=== PATIENT | female | born 1960 | race Caucasian/White ===

== ENCOUNTER 2017-01-19 11:56 | Emergency (ER) | payer BC ==
[2017-01-19] MEDS ORDERED: Ketorolac INJ* 60 MG/2 ML VIAL IM ONE (14:11)
[2017-01-19 14:22] VITALS: BP 136/82
--- NOTE | 2017-01-19 15:37 | RAD ---
INDICATION: Back pain after twisting injury. Dysuria. Microscopic hematuria COMPARISON: None TECHNIQUE: Noncontrast axial source images were acquired from the level hemidiaphragms to the symphysis pubis as part of CT imaging for renal stone. Lung bases: The lung bases are clear. Liver: The liver is mildly enlarged with innumerable cysts in both hepatic lobes many cysts are 1 cm and smaller. The largest cysts measure up to 2.6 cm. There is no ductal dilatation. Gallbladder: There are no calcified gallstones. There is no evidence of wall thickening or pericholecystic fluid.. Spleen: The spleen is normal in size. The noncontrast CT appearance is normal. Pancreas: Noncontrast imaging shows no pancreatic mass or ductal dilitation. Adrenal glands: No masses are identified. Kidneys/Bladder: There is no evidence of nephrolithiasis or CT evidence of hydronephrosis. Noncontrast imaging shows no evidence of a renal mass. The bladder is unremarkable.. Adenopathy: There is no evidence of intraperitoneal or retroperitoneal adenopathy. Evaluation is limited without oral contrast. Fluid collections: There are no free or localized fluid collections. Vessels: The aorta and iliac vessels are normal in caliber. There are no significant atherosclerotic changes. The IVC appears normal Pelvic organs: There is a small, calcified uterine fibroid. There is no adnexal mass. GI tract: Evaluation of the bowel is limited without oral contrast. The stomach, small bowel, and lower GI tract appear grossly normal. There are no obstructive findings. The appendix is visualized and appears normal. Soft tissues: There is a small fat-containing left inguinal hernia. Osseous structures: There are no acute osseous findings. IMPRESSION: NO CT EVIDENCE OF UROLITHIASIS. POLYCYSTIC LIVER DISEASE.
--- NOTE | 2017-02-19 08:42 | UC ---
Lissett Perez SooYoung, scribed for TundeKaren DO Holden on 01/19/17 at 1356 . Back Pain HPI - HPI Summary HPI Summary: A 56 y/o F presents to [facility] [place] with c/o diffuse mid to lower back pain onset this AM [employer]. Pt was sweeping up her home, and as she bent down, she twisted to reach something and felt her back "wrench" as she attempted to stand back up. She rates the pain as 7/10 when she's moving. Pt states feeling OK otherwise. Denies : fever, chills, SOB, abd pain, rash, urinary sx. Aggravating factors: movement. Took two 200mg Ibuprofen at approx 1100. Pt is scheduled for a 4-5 hour car trip today. - History of Current Complaint Chief Complaint: UCBackPain Stated Complaint: BACK INJURY Time Seen by Provider: 01/19/17 13:48 Hx Obtained From: Patient Onset/Duration: Sudden Onset, Lasting Hours, Still Present Timing: Constant Severity Initially: Moderate Severity Currently: Moderate Pain Intensity: 7 Pain Scale Used: 0-10 Numeric Back Pain: Is Diffuse - mid and lower back Aggravating Factor(s): Movement Alleviating Factor(s): Rest, Position - sitting up Associated Signs And Symptoms: Positive: Negative - Allergies/Home Medications Allergies/Adverse Reactions: Allergies Allergy/AdvReac Type Severity Reaction Status Date / Time Sulfa Drugs Allergy Intermediate Tingling Verified 01/19/17 12:27 Penicillins [PCN] Allergy Hives Verified 01/19/17 12:27 Home Medications: Home Medications Estradiol VAG CM (NF) [Estrace VAG CM (NF)] 1 applic TOPICAL DAILY 01/19/17 [ History Confirmed 01/19/17] Ibuprofen [Advil] 400 mg PO Q8HR PRN 01/19/17 [History Confirmed 01/19/17] PMH/Surg Hx/FS Hx/Imm Hx Previously Healthy: No Cardiovascular History: Other Other Cardiovascular History: palpitations Neurological History: Other Other Neurological History: MARTIN, vertigo Psychological History: Anxiety - Surgical History Surgical History: Yes Surgery Procedure, Year, and Place: TONSILLECTOMY A YOUNG ADULT; prolapse; Abdominal Surgery - Family History Known Family History: Positive: Hypertension, Other - CVA, hypercholesterolemia , [place] - Social History Occupation: Employed Full-time Lives: With Family Alcohol Use: Daily Alcohol Amount: 1-2 Drinks Substance Use Type: None Smoking Status (MU): Never Smoked Tobacco - Immunization History Most Recent Influenza Vaccination: Not UTD Review of Systems Constitutional: Negative Skin: Negative Eyes: Negative ENT: Negative Respiratory: Negative Cardiovascular: Negative Gastrointestinal: Negative Genitourinary: Negative Motor: Negative Neurovascular: Negative Musculoskeletal: Other: - pos: mid and low back pain Neurological: Negative Psychological: Negative All Other Systems Reviewed And Are Negative: Yes Physical Exam Triage Information Reviewed: Yes Appearance: Well-Appearing, No Pain Distress, Well-Nourished Vital Signs: Initial Vital Signs Temp 98.1 F 01/19/17 12:21 Pulse 86 01/19/17 12:21 Resp 18 01/19/17 12:21 BP 113/78 01/19/17 12:21 Pulse Ox 100 01/19/17 12:21 Vital Signs Reviewed: Yes Eyes: Positive: Conjunctiva Clear. Negative: Discharge ENT: Positive: Hearing grossly normal. Negative: Muffled/hoarse voice Neck exam: Normal Neck: Positive: Supple Respiratory: Positive: Lungs clear, Normal breath sounds, No respiratory distress Cardiovascular: Positive: RRR, No Murmur Musculoskeletal: Positive: Strength Intact, Other: - mild pain distress with hip extension; bilat strength sensation and reflex intact; tenderness to palpation in ángel-lumbar region, no midline tenderness Neurological: Positive: Alert, Muscle Tone Normal Psychological Exam: Normal Psychological: Positive: Age Appropriate Behavior Skin Exam: Normal, Other - warm, dry, nml color Back Pain Course/Dx - Course Course Of Treatment: Medications reviewed this visit. Blood pressure is not elevated. Non-smoker. - Differential Dx/Diagnosis Provider Diagnoses: low back strain, hematuria Discharge - Discharge Plan Condition: Stable Disposition: HOME Patient Education Materials: Low Back Strain (ED), Hematuria (ED) Referrals: Hardeep Hodgson MD [Primary Care Provider] - 1 Week Additional Instructions: WE HAVE DONE A URINALYSIS THAT SHOWED TRACE BLOOD. WE DID A CT SCAN OF THE ABDOMEN/PELVIS WHICH SHOWED NO EVIDENCE OF STONE. YOU HAVE DECLINED ANY FURTHER MEDICATION OTHER THAN THE TORADOL INJECTION HERE IN THE CLINIC. Your blood pressure was elevated at this visit. That does not mean you have hypertension, it is probably due to your current condition. Please follow up with your primary care provider. Return to Urgent Care if you have any new or worsening symptoms. The documentation as recorded by the Lissett ambriz SooYoung accurately reflects the service I personally performed and the decisions made by , Karen Griffiths DO.
== END 2017-01-19 15:40 | disposition home or self-care (01) ==
LOC: UCEAST 11:56
DX: S39.012A Strain of muscle, fascia and tendon of lower back, initial encounter (principal); X50.1XXA Overexertion from prolonged static or awkward postures, initial encounter; Y93.E9 Activity, other interior property and clothing maintenance; Y92.009 Unspecified place in unspecified non-institutional (private) residence as the place of occurrence of the external cause; R31.9 Hematuria, unspecified; R00.2 Palpitations; F41.9 Anxiety disorder, unspecified; Z88.0 Allergy status to penicillin; Z88.2 Allergy status to sulfonamides
CPT/HCPCS: 74176; 81003; 87086; 96372; 99211; G0463; J1885

== ENCOUNTER 2017-09-06 19:36 | Emergency (ER) | payer BC ==
[2017-09-06] MEDS ORDERED: Famotidine IV* 10 MG/ML 2 ML (20 mg) IV SLOW PU ONE (19:50)
[2017-09-06] MEDS ORDERED: diPHENhydraMINE IV* 50 MG/ML 1 ml VIAL (BENADRYL) IV ONE (19:50)
[2017-09-06] MEDS ORDERED: NS 0.9% 1000 ML* 1,000 ML IV SCH (20:00)
[2017-09-06 20:39] VITALS: BP 124/74
--- NOTE | 2017-09-06 20:40 | UC ---
Allergic Reaction HPI - HPI Summary HPI Summary: PT ON DAY 3 OF CLINDA FOR DENTAL INFECTION. AFTER 1PM DOSE TODAY FELT LIKE HER THROAT WAS TIGHTENING UP. NO RESPIRATORY DISTRESS. NO TONGUE OR LIP SWELLING. NO RASH OR FEVER. - History of Current Complaint Chief Complaint: UCAllergicReaction Stated Complaint: POSSIBLE ALLERGIC REACTION Time Seen by Provider: 09/06/17 19:41 Hx Obtained From: Patient Hx Last Menstrual Period: post Onset/Duration: Gradual Onset, Lasting Hours, Still Present Severity Initially: Mild Severity Currently: Moderate Pain Intensity: 2 Pain Scale Used: 0-10 Numeric Aggravating Factor(s): Nothing Alleviating Factor(s): Nothing Associated Signs And Symptoms: Positive: Cough Wheezing, Throat Tightening. Negative: Difficulty Breathing, Nausea, Syncope - Allergies/Home Medications Allergies/Adverse Reactions: Allergies Allergy/AdvReac Type Severity Reaction Status Date / Time Penicillins Allergy Severe Hives Verified 09/06/17 19:47 Sulfa (Sulfonamide Allergy Intermediate Tingling Verified 09/06/17 19:47 Antibiotics) PMH/Surg Hx/FS Hx/Imm Hx Previously Healthy: Yes - Surgical History Surgical History: Yes Surgery Procedure, Year, and Place: TONSILLECTOMY A YOUNG ADULT; prolapse; Abdominal Surgery - Family History Known Family History: Positive: Hypertension, Other - CVA, hypercholesterolemia , [place] - Social History Alcohol Use: Daily Alcohol Amount: 1-2 Drinks Substance Use Type: None Smoking Status (MU): Never Smoked Tobacco - Immunization History Most Recent Influenza Vaccination: Not UTD Review of Systems Constitutional: Negative ENT: Other - THROAT TIGHTENING Respiratory: Cough Cardiovascular: Negative Gastrointestinal: Negative Psychological: Anxious All Other Systems Reviewed And Are Negative: Yes Physical Exam Triage Information Reviewed: Yes Appearance: Well-Appearing - BUT ANXIOUS, No Pain Distress, Well-Nourished Vital Signs: Initial Vital Signs Temp 98.6 F 09/06/17 19:41 Pulse 88 09/06/17 19:41 Resp 17 09/06/17 19:41 BP 143/94 09/06/17 19:41 Pulse Ox 99 09/06/17 19:41 Vital Signs Reviewed: Yes Eyes: Positive: Conjunctiva Clear ENT: Positive: Hearing grossly normal, Pharynx normal, TMs normal Neck: Positive: Supple, Nontender, No Lymphadenopathy Respiratory Exam: Normal Cardiovascular Exam: Normal Abdomen Description: Positive: Soft Musculoskeletal: Positive: No Edema Neurological: Positive: Alert, Other: - NO SIGNS OF MENINGISMUS Psychological: Positive: Age Appropriate Behavior Skin: Negative: rashes Re-Evaluation - Re-Evaluation First Eval Re-Evaluation Time: 21:15 - no significant change after 1 L NS, Benadryl and Pepcid. Change: Unchanged Allergic Reaction Course/Dx - Course Course Of Treatment: AFTER FURTHER DISCUSSION IT IS UNCLEAR IF PT IS EXPERIENCING AN ADVERSE REACTION TO MEDICATION VS SIMPLE PROGRESSION OF HER URI. PT HAS CROUPY COUGH BUT REPORTS SHE CAN NOT TOLERATE STEROIDS. DECLINED PREDNISONE OR ANY FORM OF STEROID. NO SIGNIFICANT CHANGE AFTER IVF, BENADRYL AND PEPCID. NO RESPIRATORY DISTRESS OR ANGIOEDEMA. - Differential Dx/Diagnosis Provider Diagnoses: ACUTE URI/CROUP Discharge - Sign-Out/Discharge Documenting (check all that apply): Discharge/Admit/Transfer - Discharge Plan Condition: Stable Disposition: HOME Patient Education Materials: Upper Respiratory Infection (ED) Referrals: Hardeep Hodgson MD [Primary Care Provider] - 1 Day Additional Instructions: UNCLEAR CAUSE OF YOUR SYMPTOMS TODAY. POSSIBLY AN ADVERSE REACTION TO THE CLINDAMYCIN VERSUS PROGRESSION OF YOUR UPPER RESPIRATORY INFECTION. YOUR COUGH SOUNDS CROUPY HOWEVER GIVEN YOUR INABILITY TO TOLERATE STEROIDS RECOMMEND TREATING SUPPORTIVELY WITH [id number] IBUPROFEN, FLUIDS AND REST. FOLLOW-UP WITH YOUR PCP TOMORROW TO DISCUSS YOUR ANTIBIOTIC TREATMENT. GO TO THE ED WITHOUT FAIL IF YOU DEVELOP ANY RESPIRATORY DISTRESS, CP, FEVER, NAUSEA, WORSENING PAIN OR ANY OTHER CONCERNING SYMPTOMS. - Billing Disposition and Condition Condition: STABLE Disposition: HOME
== END 2017-09-06 21:30 | disposition home or self-care (01) ==
LOC: UCEAST 19:36
DX: J06.9 Acute upper respiratory infection, unspecified (principal); J05.0 Acute obstructive laryngitis [croup]; Z88.0 Allergy status to penicillin; Z88.2 Allergy status to sulfonamides
CPT/HCPCS: 96361; 96374; 99211; G0463; J1200